=== PATIENT | female | born 1970 | race Caucasian/White ===

== ENCOUNTER → 2017-04-17 | Day surgery (SDC) | payer BC ==
[~2017-04-17] MED LIST: DICLOFENAC PO; HYDROCODON-ACE1 EAC5 PO; LEXAPRO20 MG PO; LYRICA75 MG PO; METOPROLOL SUC100 MG PO; NORFLEX100 M1 PO; SYNTHROID PO; ZYRTEC10 M1 PO
--- NOTE | ~2017-04-17 | OR ---
Unit #: [id number] #: [id number] Patient: JHOAN BARBER [id number] [address] [place], [place] [address] [id number] MR#: [id number] NAME: JHOAN BARBER. ROOM: Date of Procedure: 04/17/2017 Admission Date: 04/17/2017 Surgeon: aTn Heredia M.D. : 1970 Attending Physician: Tan Heredia M.D. Primary Care Physician: Jessica Fraser M.D. [facility]ENTER OPERATIVE NOTE PROCEDURE PERFORMED Lumbar epidural steroid injection under x-ray guided needle placement with provider administered conscious sedation. PREOPERATIVE DIAGNOSES 1. Acute lumbar radiculitis. 2. Spinal stenosis, lumbosacral spine. 3. Herniated disk, L3-L4. 4. 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 5. Degenerative joint disease, lumbosacral spine. 6. Degenerative disk disease, lumbosacral spine. INDICATIONS FOR PROCEDURE The patient presents today approximately 2 to 4 weeks out from an acute injury, which seems to responded initially very well to conservative treatment; however as the pain of the acute injury got worse, the patient developed a chronic radiculitis which has not responded to her ongoing conservative measures. She is in possession of an MRI/CT report, which shows L3-L4 disease primarily, although there are other areas of disease. After discussing risks and benefits of proceeding today with a lumbar approach epidural steroid injection and return on 05/03/2017, at which point, we will possibly refer her to [facility] for radiofrequency ablation if her symptoms continue past epidural steroids, the patient agreed this would be the appropriate course of action. DESCRIPTION OF PROCEDURE She was then taken to the operating room, where she was prepped and draped in a sterile manner. Standard monitors were applied. She was sedated with 2 mg of IV Versed and lumbar epidural space accessed at the L3-L4 level using loss of resistance technique and x-ray guidance. Needle placement was confirmed with injection of 2 mL of Omnipaque. There was good superior and inferior flow at this L3-L4 placed needle. Following successful needle placement which required an x-ray time of 4 seconds, the patient received an injectate containing 2 mL of normal saline, 2 mL of 0.25% bupivacaine, and 80 mg of methylprednisolone. She tolerated this procedure well. She was discharged home with followup instructions, which include return to this clinic on 05/03/2017. Dictated by... Tan Heredia M.D. SCOTT/christie Unit #: [id number] #: [id number] Patient: JHOAN BARBER TD: 04/17/2017 13:45 JOB #: [id number] CC: Matthew Barakat M.D. [facility] OPERATIVE NOTE Page 1 of 1 X Daljit Heredia MD X PROCEDURE OPERATIVE NOTE
== END | disposition home or self-care (01) ==
LOC: CCSC 12:17
DX: M51.17 Intervertebral disc disorders with radiculopathy, lumbosacral region (principal); M51.16 Intervertebral disc disorders with radiculopathy, lumbar region; M48.07 Spinal stenosis, lumbosacral region; M47.27 Other spondylosis with radiculopathy, lumbosacral region; E03.9 Hypothyroidism, unspecified; J45.909 Unspecified asthma, uncomplicated; Z88.6 Allergy status to analgesic agent; Z79.891 Long term (current) use of opiate analgesic; Z79.899 Other long term (current) drug therapy; Z90.710 Acquired absence of both cervix and uterus; Z90.49 Acquired absence of other specified parts of digestive tract; Z98.890 Other specified postprocedural states
CPT/HCPCS: J1040; J2250

== ENCOUNTER → 2017-05-03 | Day surgery (SDC) | payer BC ==
--- NOTE | ~2017-05-03 | OR ---
Unit #: [id number] #: [id number] Patient: JHOAN BARBER [id number] [address] [place], [place] [address] [id number] O MR#: [id number] NAME: JHOAN BARBER ROOM: Date of Procedure: 05/03/2017 Admission Date: 05/03/2017 Surgeon: Tan Heredia M.D. : 1970 Attending Physician: Daljit Heredia Primary Care Physician: Jessica Fraser M.D. [facility]ENTER OPERATIVE NOTE PROCEDURE PERFORMED Lumbar epidural steroid injection under x-ray guided needle placement with provider administered conscious sedation. PREOPERATIVE DIAGNOSES 1. Acute lumbar radiculitis. 2. Spinal stenosis, lumbosacral spine. 3. Herniated disk, L3-L4. 4. Herniated disk, L4-L5. 5. Degenerative joint disease, lumbosacral spine. 6. Degenerative disk disease, lumbosacral spine. INDICATIONS FOR PROCEDURE The patient presents today status post one previous lumbar approach epidural steroid injection for an acute radiculitis, which had failed to respond to conservative therapy. The patient did well with the initial block; however, the amount of relief she was received was not complete nor it was completely long lasting as she did have some remaining symptoms as well as some return of symptoms in the intervening time between her initial visit and today's visit. After discussing risks and benefits of proceeding today with second lumbar approach epidural steroid injection utilizing an L4-L5 approach with the possibility of an L3-L4 dual needle technique, the patient agreed this would be the appropriate course of action. DESCRIPTION OF PROCEDURE She was then taken to the operating room, where she was prepped and draped in a sterile manner. Standard monitors were applied. She was sedated with 2 mg of IV Versed and lumbar epidural space accessed at the L4-L5 level using loss of resistance technique and x-ray guidance. Needle placement was confirmed with injection of 2 mL of Omnipaque and though we had good superior and inferior flow at this L4-L5 placement. We did not get as good coverage at the L3-L4 levels at [facility]; therefore, second needle was placed at the L3-L4 level again using loss of resistance technique and x-ray guidance. At the L3-L4 level, there was good superior and inferior flow of the x-ray dye. Total x-ray time for this dual needle placement was 7 seconds. Following successful needle placement at the L3-L4 and the L4-L5 level, the patient received an injectate containing 2 mL normal saline and 40 mg of methylprednisolone at the L4-L5 level and 4 mL normal saline and 40 mg of methylprednisolone at the L3-L4 level for a total injectate volume today of 6 mL of normal saline and 80 mg of methylprednisolone. She tolerated this procedure well. She was Unit #: [id number] #: [id number] Patient: JHOAN BARBER discharged home with followup instructions, which include offer to return this clinic as early as 08/16/2017 if we could be of further service to her. Dictated by... Eliot Avalos/christie TD: 05/03/2017 15:24 JOB #: [id number] SUR[facility]ENTER OPERATIVE NOTE Page 1 of 1 X Daljit Heredia MD PROCEDURE OPERATIVE NOTE
== END | disposition home or self-care (01) ==
LOC: CCSC 13:57
DX: M51.17 Intervertebral disc disorders with radiculopathy, lumbosacral region (principal); M47.27 Other spondylosis with radiculopathy, lumbosacral region; M48.07 Spinal stenosis, lumbosacral region; E03.9 Hypothyroidism, unspecified; K58.9 Irritable bowel syndrome, unspecified; M19.90 Unspecified osteoarthritis, unspecified site; Z79.899 Other long term (current) drug therapy; Z90.710 Acquired absence of both cervix and uterus; Z90.49 Acquired absence of other specified parts of digestive tract; Z98.890 Other specified postprocedural states
CPT/HCPCS: J1040; J2250